=== PATIENT | male | born 1970 | race Caucasian/White ===

== ENCOUNTER 2024-05-13 10:15 | Observation (INO) ==
--- NOTE | 2024-03-10 09:05 | Anesthesiology Consultation ---
Date of Service March 10, 2024 Assessment & Plan (1) Encounter for pre-operative examination: - Patient reported that 03/05/24 developed cough and nasal congestion, he states now has "mucus in lungs." He was prescribed Augmentin by his PCP 03/08/24. He states since starting antibiotic is still coughing and sensation of mucus in his lungs. Cough is productive of yellow sputum and occasional wheezing and chest discomfort-using nebulizer more often with benefit of wheezing and chest discomfort. He had a fever 03/07/24. He denies pharyngitis, chills or myalgias. Case discussed with Dr. Lackey who advised case needs postponed for 2 weeks. Patient made aware, he plans to have COVID test done with PCP vs waiting to see if he is still having symptoms within 10 days of new surgery date. OR and surgeon's office made aware. - I noted PCP notation regarding chronic dizziness and consideration to order carotid imaging. Will request if carotid testing was done from PCP, case discussed with Dr. Bey who advised nothing further was needed from this standpoint if testing has not been ordered/done. Chart Review Chart Review: Pending: Refer to Additional Notes / Consult section and Patient NOT seen in Pre Admission Testing History Surgery Operation Date: 03/11/24 11:50 Proposed Procedures p Robotic Assisted Laparoscopic Radical Retropubic Prostatectomy, Possible Open, Possible Pelvic Lymph Node Dissection - Lucinao Sigala MD Height/Weight Height: 5 ft 6 in Weight: 81.647 kg Allergies Allergy/AdvReac Type Severity Reaction Status Date / Time codeine Allergy Severe Anaphylaxis Verified 03/02/24 14:36 Medications Home Medications Medication Instructions Recorded Confirmed Last Taken sildenafil (pulm.hypertension) 20 20 mg PO DAILY PRN sexual activity 07/02/23 03/02/24 Unknown mg tablet #90 tabs fluocinonide 0.05 % topical 1 applic topical UD PRN Skin 12/08/23 03/02/24 Unknown solution Irritation diclofenac sodium 75 mg 75 mg PO DAILY PRN Pain 01/08/24 03/02/24 Unknown tablet,delayed release albuterol sulfate 90 mcg/actuation 1 inh inhalation QID PRN sob 03/02/24 03/02/24 Unknown aerosol inhaler ashwagandha extract 500 mg capsule 500 mg PO [id number] 03/02/24 03/02/24 Unknown famotidine 40 mg tablet 40 mg PO QAM 03/02/24 03/02/24 Unknown fluticasone 100 mcg-salmeterol 50 1 inh inhalation BID PRN sob 03/02/24 03/02/24 Unknown mcg/dose blistr powdr for inhalation (Advair Diskus) Past Medical History Medical History Asthma well controlled - rarely uses inhalers. BPH (benign prostatic hyperplasia) GERD (gastroesophageal reflux disease) History of dysphagia History of esophageal dilatation History of palpitations cardiac workup negative. palpitations will come and go, related to stress/anxiety. 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 Hx of bronchitis about every 2 years. last episode in 2022. Hyperlipidemia MTHFR mutation Past Family History Family History Mother Cancer Breast Other No pertinent family history in first degree relatives Past Surgical History Surgical History History of ankle surgery right ankle surgery with hardware History of colonoscopy History of esophagogastroduodenoscopy (EGD) Hx of appendectomy Hx of prostate biopsy Social History Smoking Status: Never smoker Do You Dip or Chew Tobacco: No Hx Alcohol Use: Yes Alcohol type: wine alcohol intake frequency: holidays/special occasions only Hx Substance Use: No substance use type: does not use Lab Results Anesthesia Preop Results Results Anesthesia Widget: WBC 6.91 K/ul (4.8-10.8) 03/08/24 Hgb 16.1 g/dl (14.0-18.0) 03/08/24 Hct 49.0 % (42.0-52.0) 03/08/24 Plt 202 K/uL (130-400) 03/08/24 Na 136 mmol/L (136-145) 03/08/24 K 4.1 mmol/L (3.5-5.1) 03/08/24 Cl 103 mmol/L (98-107) 03/08/24 CO2 23 mmol/L (21-32) 03/08/24 BUN 18 mg/dl (6-23) 03/08/24 Creat 1.10 mg/dl (0.6-1.4) 03/08/24 Glucose Level 157 mg/dl (70-99(Fasting)) H 03/08/24 Testing Electrocardiogram Date: 03/08/24 Sinus rhythm, rate 66 bpm Possible LA enlargement RBBB Chest X-Ray Date: 03/08/24 No acute cardiopulmonary process.
[2024-05-13] MEDS ORDERED: PROPOFOL IV EMULSION 10 MG/ML 20 ML VIAL IV ONE (10:35)
[2024-05-13] MEDS ORDERED: SUGAMMADEX SODIUM 200 MG/2 ML VIAL IV ONE (10:35)
[2024-05-13] MEDS ORDERED: ROCURONIUM BROMIDE 10 MG/ML 5 ML VIAL IV ONE (10:35)
[2024-05-13] MEDS ORDERED: KETAMINE HCL 10MG/ML SYR ONE (10:35)
[2024-05-13] MEDS ORDERED: fentaNYL citrate PF 100 MCG/2 ML VIAL ONE (10:35)
[2024-05-13] MEDS ORDERED: DEXAMETHASONE SOD INJ 4 MG/ML VIAL ONE (10:35)
[2024-05-13] MEDS ORDERED: MIDAZOLAM HCL 1 MG/ML 2ML VIAL ONE (10:35)
[2024-05-13] MEDS ORDERED: ONDANSETRON INJ 2 MG/ML 2 ML VIAL ONE (10:35)
[2024-05-13] MEDS ORDERED: LIDOCAINE 2% 2 ML VIAL/AMP(20MG/ML) INFIL ONE (10:35)
--- NOTE | 2024-05-13 11:08 | History & Physical Report ---
Date of Service May 13, 2024 Assessment & Plan (1) Prostate cancer: Plan: We reviewed the plan for robotic radical prostatectomy and bilateral pelvic lymph node dissection. We reviewed risks and benefits of surgery. He expressed understanding and would like to proceed with surgery. History of Present Illness Primary Care Provider: Marquita Harvey PA-C This is a 53-year-old male followed by urology for prostate cancer. He presents to the OR for robotic radical prostatectomy. He denies any changes in his health. Allergies Allergy/AdvReac Type Severity Reaction Status Date / Time codeine Allergy Severe Anaphylaxis Verified 05/13/24 10:45 Home Medications Medication Instructions Recorded Confirmed Type sildenafil (pulm.hypertension) 20 20 mg PO DAILY PRN sexual activity 07/02/23 05/13/24 Rx mg tablet #90 tabs fluocinonide 0.05 % topical 1 applic topical UD PRN Skin 12/08/23 05/13/24 History solution Irritation diclofenac sodium 75 mg 75 mg PO DAILY PRN Pain 01/08/24 05/13/24 History tablet,delayed release albuterol sulfate 90 mcg/actuation 1 inh inhalation QID PRN sob 03/02/24 05/13/24 History aerosol inhaler famotidine 40 mg tablet 40 mg PO QAM 03/02/24 05/13/24 History fluticasone 100 mcg-salmeterol 50 1 inh inhalation BID PRN sob 03/02/24 05/13/24 History mcg/dose blistr powdr for inhalation (Advair Diskus) cetirizine 10 mg capsule (Allergy 10 mg PO QAM 05/05/24 05/13/24 History Relief (cetirizine)) Past Med/Surg History Problem List Prostate cancer (Chronic 12/26/23) Hypercholesterolemia Erectile dysfunction BPH (benign prostatic hyperplasia) Elevated PSA Medical History Hypercholesterolemia Prostate cancer (01/02/24) MTHFR mutation Hx of bronchitis about every 2 years. last episode in 2022. History of palpitations cardiac workup negative. palpitations will come and go, related to stress/anxiety. 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 History of dysphagia no troubles currently History of esophageal dilatation GERD (gastroesophageal reflux disease) BPH (benign prostatic hyperplasia) Asthma well controlled - rarely uses inhalers. Surgical History History of colonoscopy History of esophagogastroduodenoscopy (EGD) Hx of prostate biopsy History of ankle surgery right ankle surgery with hardware present Hx of appendectomy Family History Mother Cancer Breast Other No pertinent family history in first degree relatives Social History (Updated 01/08/24 @ 10:28 by Fanny Foster RN) Smoking Status: Never smoker Second Hand Exposure: No; Do You Dip or Chew Tobacco: No; Tobacco Cessation Education Requested by Patient: No Hx Alcohol Use: Yes Alcohol type: wine Hx Substance Use: No Preferred Language: Thai Communication Ability: Effective Visual Impairment: No Limitations Hearing Ability: Normal Maintenance Mechanic Elevators Required: No Beliefs That Will Affect Care: None marital status: Current Living Situation: Spouse and Family current occupational status: unemployed Other Information That Helps Us Care for You: No Feels Safe at Home: Yes Safety Concerns: Feels Safe At This Time during the past year weight has: remained stable Physical Activity Frequency: 3-4 Times per Week Assistive Devices: None Physical Exam Physical Exam: Well-appearing, NAD
[2024-05-13] MEDS ORDERED: HYDROmorphone INJ 1 MG/ML SYRINGE IV PRN (11:13)
[2024-05-13] MEDS ORDERED: ePHEDrine sulfate 50 MG/ML AMP IV PRN (11:13)
[2024-05-13] MEDS ORDERED: ONDANSETRON INJ 2 MG/ML 2 ML VIAL IV PRN (11:13)
[2024-05-13] MEDS ORDERED: ATROPINE SULFATE 0.1 MG/ML 10ML SYR IV PRN (11:13)
[2024-05-13] MEDS: LACTATED RINGER'S 1,000 ML IV SCH (11:22)
[2024-05-13] MEDS: LR 15ML/HR IV SCH (11:34)
[2024-05-13] MEDS: HEPARIN SOD 5,000 UNIT/0.5 ML VIAL SC SCH (11:34)
[2024-05-13] MEDS: ceFAZolin 2000MG 2,000 MG/15 ML SYR IV SCH ×2 (12:36→20:45)
[2024-05-13] MEDS ORDERED: HYDROmorphone INJ 2 MG/ML SYR/VIAL ONE (12:53)
[2024-05-13] MEDS: BUPIVACAINE 0.5 % 5 MG/1 ML MPF 30ML VIAL ONE (15:58)
--- NOTE | 2024-05-13 16:15 | Operative Report ---
[facility] Post Operative Report Pre & Post Diagnosis Operation Date: 05/13/24 12:00 Pre-Op Diagnosis: Prostate Cancer Post-Op Diagnosis: Prostate Cancer I identified the patient and participated in the time-out.: Yes Procedure Operation Date: 05/13/24 12:00 Actual Procedures p Robotic Assisted Laparoscopic Radical Retropubic Prostatectomy - Luciano Sigala MD Surgeon Luciano Sigala MD Chief Hydroelectric Station Operator SARA Levine Estimated Blood Loss 250 Findings Consistent with Post-Op Diagnosis Specimens 1) periprostatic fat 2)prostate, vas deferens, seminal vesicles Drains Early catheter per urethra Anesthesia Type General Complications none Disposition Accompanied Patient To Recovery: Yes Disposition: Recovery Room Indications This is a 53-year-old male followed by urology for prostate cancer. He presents to the OR today for robotic radical prostatectomy. Description of Procedure The patient was identified in the preoperative holding area and informed consent was confirmed. He was then brought to the operating room where general anesthesia was initiated. He was placed supine on the operating room table with all pressure points appropriately padded. His abdomen and genitalia were prepped and draped in the usual sterile fashion and a timeout was performed. A 2 cm incision was made above the umbilicus and then a Veress needle was used to obtain access to the abdomen. Proper position was confirmed with the drop test and low initial insufflation pressure. The abdomen was insufflated with CO2 to a pressure of 15 mmHg. An 8 mm robotic port was placed in the incision and the robotic camera was inserted. The abdominal cavity was surveyed, demonstrating no injury to intra-abdominal contents. There was some sigmoid adhesions in the left lower quadrant. The remaining robotic ports were placed under direct visualization, with 2 robotic ports on the left side and 1 robotic port on the right. A 12 mm assistant analyst port was placed on the right side as well, and a 5 mm assistant analyst port was placed in the right upper quadrant. The robot was then docked. The sigmoid adhesions were divided sharply. The distal colon and rectum fell somewhat out of the way, though there was not much room in the pelvis. Using electrocautery, the bladder was then dropped from the anterior wall of the abdomen, exposing the space of Retzius. This dissection was carried down to expose the pelvic brim and subsequently the anterior surface of the prostate and the endopelvic fascia. The fat overlying the anterior of the prostate was removed and sent for pathologic analysis, labeled as 'periprostatic fat'. The endopelvic fascia was then divided on each side to expose the lateral aspects of the prostate and the lateral aspects of the pedicles. A single 3-0 V-Loc suture was used to ligate the dorsal venous complex to prevent backbleeding in subsequent steps. The fourth arm of the robot was then used to put some gentle traction on the bladder, and the bladder neck was identified. Using electrocautery, the anterior bladder neck was dissected to expose the Early catheter, whose tip was removed from the bladder and held anteriorly. The prostate seemed somewhat anteriorly rotated. The posterior bladder neck dissection was then completed. I followed this plane down to identify bilateral vas deferens, which were exposed and isolated. The vas deferens were cauterized and then divided. Bilateral seminal vesicles were dissected out as well. Denonvilliers fascia was then divided and the posterior prostate dissection was carried up as far as possible toward the urethra. There was not much mobility of the prostate which made the pedicle dissection challenging. The pedicles were divided using combination of clips and sharp dissection, trying to use minimal electrocautery. On the right side, a partial nerve sparing approach was used. On the left side, a partial nerve sparing approach was used. Attention was turned anteriorly and the dorsal venous complex was divided using sharp dissection and electrocautery. I had to oversew the dorsal venous complex using 3-0 V-Loc from earlier. The urethra was isolated and then divided sharply. At this point, the prostate was free and was placed in a specimen bag. Meticulous hemostasis was obtained within the pelvis. I used a 4-0 Monocryl to oversew to bleeding areas from the pedicle dissection. Due to the low probability of lymph node involvement on preoperative nomogram, I opted not to perform a pelvic lymph node dissection. The pelvis was inspected and meticulous hemostasis was ensured. Double-armed V- Loc suture was then used to re-anastomose the bladder neck with the urethra. Once this was complete, the anastomosis was tested by instilling 120 mL of normal saline into the bladder. Initially there was some leaking from the anterior aspect of the anastomosis. This area was oversewed and inspected repeatedly until there was no additional leaking. Satisfied that the anastomosis was watertight, the catheter balloon was inflated with 10 mL of normal saline. Final inspection identified good hemostasis throughout and no injury to intra- abdominal contents. The robot was then undocked. The supraumbilical incision was extended and the prostate was extracted. 0 Vicryl suture was then used to close the fascia at this incision. All skin incisions were closed with 4-0 Monocryl suture and then a layer of Dermabond was applied. The patient was then awakened from anesthesia and was brought to the PACU in stable condition. SARA Levine acted as the bedside assistant analyst for the duration of the case. She assisted with gaining access, providing retraction and suction. Passing in sutures and applying clips as needed. She also helped with specimen extraction and closing. I attest to the content of the Intraoperative Record and any orders documented therein. Any exceptions are noted below.
[2024-05-13] MEDS: fentaNYL citrate PF 100 MCG/2 ML VIAL IV PRN (16:47)
--- NOTE | 2024-05-13 16:57 | Anesthesiology Progress Note ---
Date of Service May 13, 2024 Anesthesia Post Procedure Vital Signs Vital Signs: Temp Pulse Pulse Resp BP Pulse Ox O2 Del Method 05/13/24 16:50 77 14 141/88 H 98 Nasal Cannula 05/13/24 16:40 80 12 139/91 97 Nasal Cannula 05/13/24 16:30 85 14 139/77 97 Nasal Cannula 05/13/24 16:22 36.7 C 84 14 130/82 98 Nasal Cannula 05/13/24 10:51 36.9 C 78 20 139/86 98 Room Air O2 Flow Rate 05/13/24 16:50 4 05/13/24 16:40 4 05/13/24 16:30 4 05/13/24 16:22 4 05/13/24 10:51 Pain Intensity Abdomen: Pain Intensity: 6 Transfer of Care Handoff Completed per policy Notes Mental Status: alert / awake / arousable and participated in evaluation Patient Amnestic to Procedure: Yes Nausea / Vomiting: adequately controlled Pain: adequately controlled Airway Patency, RR, SpO2: stable & adequate BP & HR: stable & adequate Hydration State: stable & adequate Anesthetic Complications: no major complications apparent and Pt Satisfied with anesthetic care
[2024-05-13] MEDS ORDERED: IBUPROFEN 200 MG TAB PO PRN (17:38)
[2024-05-13] MEDS ORDERED: ALBUTEROL HFA 8 GM INHALER INH PRN (17:38)
[2024-05-13] MEDS ORDERED: FLUTICASONE/VILANTEROL 100/25MCG 14 PUFFS/INHALER INH PRN (18:16)
[2024-05-13] MEDS: SODIUM CHLORIDE 0.9% 1,000 ML IV SCH (18:17)
[2024-05-13] MEDS: ACETAMINOPHEN 325 MG TAB PO SCH (18:17)
--- NOTE | 2024-05-13 19:38 | Communication Note ---
Date of Service: May 13, 2024 I was asked to check on this patient due to postoperative pain issues. Patient notes that he is having some incisional pain but also notes that he is having considerable discomfort from his Early catheter. The patient's chart was reviewed and he does have a listed allergy to codeine and the patient describes an anaphylactic reaction to this. Review of patient's medications administered since this hospitalization does reveal that anesthesia did use Dilaudid intraoperatively and the patient did not have any adverse sequelae had been noted. I discussed with the patient that we can try administering some intravenous Toradol for pain relief and also try some Pyridium for pain from his Early catheter/bladder spasm. He is agreeable to trying these medications and wishes to use these prior to trying Dilaudid. Orders have been entered for as needed Toradol and Pyridium. We will monitor his clinical response to these medications.
[2024-05-13] MEDS: KETOROLAC TROMETHAMINE 15 MG/ML VIAL IV PRN (20:07)
[2024-05-13] MEDS: ONDANSETRON INJ 2 MG/ML 2 ML VIAL IV PRN (20:07)
[2024-05-13] MEDS: HEPARIN SOD 5,000 UNIT/0.5 ML VIAL SQ SCH (20:08)
[2024-05-13] MEDS: DOCUSATE SODIUM 100 MG CAP PO SCH (20:08)
[2024-05-13] MEDS: MELATONIN 3 MG TAB PO PRN (22:20)
[2024-05-13] MEDS: PHENAZOPYRIDINE HCL 200 MG TAB PO PRN (22:21)
[2024-05-13] MEDS: HYDROmorphone HCL 2 MG TAB PO PRN (22:21)
[2024-05-14 07:16] VITALS: PULSE 70; RESP 16
[2024-05-14 08:10] LABS: Basophils # (auto) 0.03 K/uL (0.00-0.20); Basophils % (auto) 0.2 %; Immature Granulocytes # (auto) 0.06 K/uL (0.01-0.20); Immature Granulocytes % (auto) 0.4 %; Lymphocytes # (auto) 1.86 K/uL (1.20-3.40); Lymphocytes % (auto) 10.9 %; Mean Corpuscular Hemoglobin 28.4 pg (25.0-34.0); Mean Corpuscular Hgb Conc 32.5 g/dL (32.0-36.0); Mean Corpuscular Volume 87.5 fL (80.0-100.0); Mean Platelet Volume 10.7 fL (9.4-12.4); Monocytes # (auto) 1.66 K/uL (0.11-0.59); Monocytes % (auto) 9.7 %; Neutrophils # (auto) 13.49 K/uL (1.40-6.50); Neutrophils % (auto) 78.8 %; Platelet Count 225 K/uL (130-400); RDW Coefficient of Variation 13.2 % (11.5-14.5); RDW Standard Deviation 42.5 fL (36.4-46.3); Red Blood Count 4.57 M/uL (4.70-6.10)
[2024-05-14] MEDS: FAMOTIDINE 40 MG TABLET PO SCH (08:20)
[2024-05-14] MEDS: CETIRIZINE HCL 10 MG TABLET PO SCH (08:20)
[2024-05-14 08:43] LABS: BUN Creatinine Ratio 15.9 (10-20); Calcium 8.2 mg/dl (8.6-10.3); Creatinine Clr Calc Pharmacy 76.5 ml/min; Potassium 4.4 mmol/L (3.5-5.1)
--- NOTE | 2024-05-14 09:03 | Urology Progress Note ---
Date of Service May 14, 2024 Assessment & Plan (1) Prostate cancer: Plan: 53 yo/M POD #1 s/p Robotic Laparoscopic-Assisted Radical Retropubic Prostatectomy with Dr. Sigala. - Doing well, progressing as expected - Afebrile, hemodynamically stable - Post op lab work reviewedcreatinine 1.3, WBC 17.1, hemoglobin 13.0 - Pain overnight and this morning requiring IV medications - Discussed trying to switch to oral pain medication today - Tolerating regular diet - Encouraged OOB ambulation - Incisions appropriate - Early catheter patent and draining appropriately - Maintain Early catheter upon discharge for 2 weeks - Expected clinical course reviewed, all questions answered - Anticipate discharge to home later today or tomorrow if he continues to progress as expected - Will arrange outpatient follow-ups Admission and Anticipated Discharge Date Admission Date: May 13, 2024 Subjective Patient seen and examined at bedside this morning. He is awake and sitting up in bed. Tolerating regular diet. Ambulated yesterday. He reports lower abdominal/pelvic discomfort. Also reports discomfort from catheter, Pyridium has helped. Early draining appropriately. Denies fever or chills. Review of Systems Constitutional: as per Subjective / HPI Genitourinary: + as per Subjective / HPI Physical Exam Constitutional: well developed and well nourished; no acute distress Respiratory: normal respiratory effort; no respiratory distress and no labored breathing Gastrointestinal (Abdomen): Percussion/Palpation: abdomen soft; abdomen nontender Musculoskeletal: Head/Neck/Chest: normocephalic Skin: Incisions C/D/I with Dermabond Neurologic: moves all extremities and awake Psychiatric: Orientation: alert and oriented x 3 Genitourinary: Early draining orange and blood-tinged urine Results & Data Vital Signs (Past 12 Hours) Vital Signs Temp Pulse Pulse Resp BP Pulse Ox O2 Del Method 05/14/24 07:15 36.5 C 70 16 97/58 L 96 Room Air 05/14/24 03:00 36.8 C 71 18 107/65 95 Room Air 05/13/24 23:00 37.1 C 86 18 118/72 94 Room Air PG Care Time/CCT Total # of Minutes Spent Total Time Spent with Patient: Total time spent is greater than 50% in coordination of care (as documented) at patient's floor/unit and/or counseling patient: Coding Level of Care Code None Diagnoses Prostate cancer C61
[2024-05-14 11:15] VITALS: BP 100/63; TEMP 98.2; O2SAT 97
--- NOTE | 2024-05-14 12:38 | Discharge Summary ---
Date of Service May 14, 2024 Admission HPI Per Admitting Provider This is a 53-year-old male followed by urology for prostate cancer. He presents to the OR for robotic radical prostatectomy. He denies any changes in his health. Principal Diagnosis Prostate cancer Discharge Exam Constitutional well developed and well nourished; no acute distress Respiratory normal respiratory effort; no respiratory distress and no labored breathing Gastrointestinal (Abdomen) Inspection/Auscultation: abdomen normal to inspection Musculoskeletal Head/Neck/Chest: normocephalic Skin Incisions C/D/I Neurologic moves all extremities and awake Psychiatric Orientation: alert and oriented x 3 Genitourinary Mata intact with blood tinged urine Discharge Data Allergies Allergy/AdvReac Type Severity Reaction Status Date / Time codeine Allergy Severe Anaphylaxis Verified 05/13/24 10:45 Procedures Performed Operation Date: 05/13/24 12:00 Actual Procedures p Robotic Assisted Laparoscopic Radical Retropubic Prostatectomy(Not Applicable) - Luciano Sigala MD Hospital Course (1) Prostate cancer: Plan 53 yo/M POD #1 s/p Robotic Laparoscopic-Assisted Radical Retropubic Prostatectomy with Dr. Sigala. - Doing well, progressing as expected - Afebrile, hemodynamically stable - Post op lab work reviewedcreatinine 1.3, WBC 17.1, hemoglobin 13.0 - Pain overnight and this morning, IV/PO medications - Tolerating regular diet - Encouraged OOB ambulation - Incisions appropriate - Mata catheter patent and draining appropriately - Maintain Mata catheter upon discharge for 2 weeks - Expected clinical course reviewed, all questions answered - Anticipate discharge to home later today or tomorrow if he continues to progress as expected - Will arrange outpatient follow-ups Total Time Total Time Spent Total Time Spent (In Minutes): 29 Discharge Plan Discharge Items Patient Disposition: Home - Self-Care Reason For Visit: Prostate Cancer Discharge Diagnosis: Prostate cancer Activity: Per Instructions section Lifting: No more than 10 pounds Bathing Comment: Okay to shower after discharge, no tub bath or soaking Sexual Activity: Wait until after follow-up appointment Exercise/Sports: Wait until after follow-up appointment Driving/Machine Use: No driving while taking prescription pain medication Non-emergency contact: Surgeon and Urologist Call non-emergency contact if: your pain is not controlled, your temperature is above 101, your wound has increased redness, your wound has increased drainage and your wound pain has increased Follow-up/Referrals: Marquita Harvey PA-C [Primary Care Provider] - Diet: Regular Addtl Attending Provider Instructions: The surgery you had was: Robot-assisted radical prostatectomy Please take all medications as prescribed and keep all follow-ups as scheduled. Please call our office at [phone] with any questions, concerns or need to reschedule appointments for any reason. We are happy to assist you Medications: Please take all medications as prescribed. For pain control, you can take tylenol every 6 hours. You can also take ibuprofen every 6 hours. If you have been prescribed a narcotic pain medication, please take this according to the instructions on the label. You have been prescribed a single dose of antibiotics (Bactrim) to be taken 1 hour prior to your appointment for mata catheter removal. Activity: We recommend having someone with you for the first few days after surgery to help care for you. For the first 2 weeks after surgery, we would like you to get up and walk around your house. However, we recommend limit physical activity that would increase your heart rate. This will allow your body to rest and heal. Take naps if you feel tired. Don't lift anything heavier than 10 pounds, mow the law or ride a bicycle unti l your follow-up appointment. Please avoid long car rides. Home Care: Unless directed otherwise, drink 6 to 8 glasses of water a day (enough to keep your urine light colored). This will also help keep a healthy flow of urine. We recommend using a stool softener such as colace or miralax for the first two weeks to avoid constipation. Mata Catheter care: Keep the catheter well secured with either a leg back or leg strap with large bag. Empty your bag when it's about half full. You may notice some blood in the bag. This is normal after surgery and while the catheter is in place. Use mild soap (such as Dove or Dial) and water to wash the catheter and the head of your penis daily, or more frequently if needed. Return to your normal diet, we encourage good protein intake to promote healing. You may shower as normal. Please avoid tub baths or soaking until catheter removed and incisions well healed. Wearing sweat pants while you have the catheter is recommended, they will be more comfortable. Follow-up We will have you come to the office in approximately 14 days for catheter removal. - Please remember to take your dose on antibiotics 1 hour prior to this appointment. We will review pathology results at that appointment and discuss further followup. Call [facility] at [phone] right away if you have any of the following: Chest pain or trouble breathing (call 911 or go to the hospital) Fever of 101F or higher, uncontrolled vomiting Heavy bleeding, clots, or bright red blood from the catheter Catheter that falls out or stops draining Foul-smelling discharge from your catheter Redness, swelling, warmth, or increased pain at your incision site Drainage, pus, or bleeding from your incision Pending Studies at Discharge: Yes (Pathology) Stand-Alone Forms: [facility] - [facility]io[facility] Pain [facility] Medications and DC Order Prescriptions: New sulfamethoxazole-trimethoprim [Bactrim DS] 800-160 mg tablet 1 tab PO ONCE 1 Days Qty: 1 0RF phenazopyridine [Pyridium] 200 mg tablet 200 mg PO Q8H PRN (Reason: pain) Qty: 10 0RF hydromorphone [Dilaudid] 2 mg tablet 2 mg PO Q8H Qty: 10 0RF Continued sildenafil (pulm.hypertension) 20 mg tablet 20 mg PO DAILY PRN (Reason: sexual activity) Qty: 90 2RF Rx Instructions: Take 30 to 60 minutes prior to sexual activity. Start with 1 tab, can increase by 1 at a time up to maximum of 5 tabs (100 mg) for desired effect fluocinonide 0.05 % solution 1 applic topical UD PRN (Reason: Skin Irritation) diclofenac sodium 75 mg tablet,delayed release (DR/EC) 75 mg PO DAILY PRN (Reason: Pain) famotidine 40 mg Tablet 40 mg PO QAM fluticasone propion-salmeterol [Advair Diskus] 100-50 mcg/dose Blister With Device 1 inh INHALATION BID PRN (Reason: sob) albuterol sulfate 90 mcg/actuation Hfa Aerosol Inhaler 1 inh INHALATION QID PRN (Reason: sob) Allergy Relief (cetirizine) 10 mg Capsule 10 mg PO QAM Discharge Orders: Discharge Order (Routine); Ordered 05/14/24 Ordered By: Princess Hanson/Other Patient Handouts: DVT Post Op Prevention Admission Data Admit Date/Time: 05/13/24 16:29 Attending Provider: Luciano Sigala Admit Provider: Luciano Sigala Primary Care Provider: Marquita Harvey Other Interventions: Discharge Summary Assessment (RN) Last Done: 05/14/24 12:44 Coding Level of Care Code 87257 IN/OBS DISCH 30 MIN/LESS Diagnoses Prostate cancer C61
== END 2024-05-14 14:05 | disposition home or self-care (01) ==
LOC: ASU 10:15 → INTOOBSV 16:29 → 3W 16:29